=== PATIENT | male | born 1950 | race Asian ===

== ENCOUNTER 2021-03-04 19:26 | Emergency (ER) | payer MEDICARE, OTHER ==
[~2021-03-04] VITALS: Ht 172.7 cm; Wt 84.5 kg
[2021-03-04 19:31] VITALS: BP 157/83
== END 2021-03-04 20:50 | disposition home or self-care (01) ==
LOC: EMS 19:26
DX: H61.23 Impacted cerumen, bilateral (principal); E11.9 Type 2 diabetes mellitus without complications
CPT/HCPCS: 99283

== ENCOUNTER 2021-03-13 21:06 | Emergency (ER) | payer MEDICARE, OTHER ==
[~2021-03-13] VITALS: Ht 172.7 cm; Wt 84.1 kg
[2021-03-13] MEDS ORDERED: HYDROGEN PEROXIDE 118 ML SOLUTION TP ONE (23:00)
[2021-03-14 00:24] VITALS: BP 127/64
== END 2021-03-14 00:25 | disposition home or self-care (01) ==
LOC: EMS 21:11
DX: H61.23 Impacted cerumen, bilateral (principal); E11.9 Type 2 diabetes mellitus without complications
CPT/HCPCS: 69209; 99282; Z7502; Z7610

== ENCOUNTER 2021-09-16 12:46 | Emergency (ER) | payer MEDICARE, OTHER ==
[~2021-09-16] VITALS: Ht 175.3 cm; Wt 84.1 kg
[2021-09-16 14:38] LABS: BASOPHILS % (AUTO) 0.7 % (0.0-2.0); EOSINOPHILS % (AUTO) 1.4 % (1.0-6.0); HEMATOCRIT 42.8 % (41-53); HEMOGLOBIN 14.4 g/dL (13.5-17.5); LYMPHOCYTES # (AUTO) 0.9 K/uL (1.0-4.8); LYMPHOCYTES % (AUTO) 9.4 % (22.0-44.0); MEAN CORPUSCULAR HEMOGLOBIN 30.8 pg (26.0-34.0); MEAN CORPUSCULAR HGB CONC 33.7 G/dL (31.0-37.0); MEAN CORPUSCULAR VOLUME 91 fL (80-100); MONOCYTES # (AUTO) 0.8 K/uL (0.1-1.0); MONOCYTES % (AUTO) 7.7 % (2.0-9.0); NEUTROPHILS % (AUTO) 80.8 % (40.0-70.0); PLATELET COUNT (AUTO) 190 K/uL (150-450); RED BLOOD CELL COUNT(AUTO) 4.68 MIL/uL (4.50-5.90); RED CELL DISTRIBUTION WIDTH 12.9 % (11.5-14.5)
[2021-09-16 14:47] LABS: CALCIUM, TOTAL 9.1 mg/dL (8.8-10.5); CREATININE 2.18 mg/dL (0.60-1.30); POTASSIUM 4.3 mmol/L (3.5-5.1)
[2021-09-16 14:53] LABS: ALBUMIN 3.8 g/dL (3.4-5.0); BILIRUBIN,TOTAL 0.4 mg/dL (0.1-1.0); TOTAL PROTEIN, SERUM 7.7 g/dL (6.4-8.2)
[2021-09-16] MEDS ORDERED: KETOROLAC TROMETHAMINE 30 MG/ML VIAL IVP ONE (16:45)
[2021-09-16 18:15] VITALS: BP 165/75
== END 2021-09-16 19:04 | disposition home or self-care (01) ==
LOC: EDUNIT# 12:46 → EMS 12:54
DX: R07.89 Other chest pain (principal); I10 Essential (primary) hypertension; E11.9 Type 2 diabetes mellitus without complications; V49.49XA Driver injured in collision with other motor vehicles in traffic accident, initial encounter; Y93.89 Activity, other specified; Y92.89 Other specified places as the place of occurrence of the external cause; Y99.8 Other external cause status
CPT/HCPCS: 36415; 71045; 73502; 73552; 73562; 80053; 84484; 85025; 93005; 96374; 99285; J1885

== ENCOUNTER 2022-03-22 00:04 | Emergency (ER) | payer MEDICARE, OTHER ==
[~2022-03-22] VITALS: Ht 175.3 cm; Wt 84.0 kg
[~2022-03-22 00:04] MED LIST: ATEN-73 PO; ATOR20TA65 PO; CHLO25TA3 PO; FINA5TAB41 PO; FLUT1BLS10 IH; LORA10TA7 PO; LOSA-382 PO; METF-1211 PO; SITA100 PO; TAMS-13 PO
[2022-03-22 00:32] VITALS: BP 149/75
[2022-03-22 00:46] LABS: GLUCOSE,POINT OF CARE 99 MG/DL (70-110)
== END 2022-03-22 00:42 | disposition left against medical advice (07) ==
LOC: EMS 00:05
DX: Z53.21 Procedure and treatment not carried out due to patient leaving prior to being seen by health care provider (principal)
CPT/HCPCS: 82962

== ENCOUNTER 2022-08-22 17:22 | Emergency (ER) | payer MEDICARE, OTHER ==
[~2022-08-22] VITALS: Ht 175.3 cm; Wt 86.4 kg
[2022-08-22] MEDS ORDERED: SITA50 PO (17:28)
[2022-08-22] MEDS ORDERED: ASPI81TA87 PO (17:28)
[2022-08-22] MEDS ORDERED: ATOR10TA69 PO (17:28)
[2022-08-22 17:41] LABS: GLUCOMETER DEV NAME(LOC) ERT.5; GLUCOSE,POINT OF CARE 103 MG/DL (70-110)
[2022-08-22 20:09] VITALS: BP 143/75
== END 2022-08-22 20:52 | disposition home or self-care (01) ==
LOC: EMS 17:22
DX: I10 Essential (primary) hypertension (principal); E11.9 Type 2 diabetes mellitus without complications
CPT/HCPCS: 82962; 93005; 99283

== ENCOUNTER 2023-02-11 01:01 | Inpatient (IN) | payer MEDICARE, OTHER ==
[~2023-02-11] VITALS: Ht 172.7 cm; Wt 84.0 kg
[~2023-02-11 01:01] MED LIST changes: +ASPI81TA87 PO; -ATEN-73 PO; +ATOR10TA69 PO; -ATOR20TA65 PO; -SITA100 PO; +SITA50 PO
[2023-02-11 01:25] LABS: BASOPHILS % (AUTO) 1.1 % (0.0-2.0); EOSINOPHILS % (AUTO) 6.6 % (1.0-6.0); HEMATOCRIT 44.1 % (41-53); HEMOGLOBIN 14.8 g/dL (13.5-17.5); LYMPHOCYTES # (AUTO) 2.4 K/uL (1.0-4.8); LYMPHOCYTES % (AUTO) 26.3 % (22.0-44.0); MEAN CORPUSCULAR HEMOGLOBIN 31.2 pg (26.0-34.0); MEAN CORPUSCULAR HGB CONC 33.6 G/dL (31.0-37.0); MEAN CORPUSCULAR VOLUME 93 fL (80-100); MONOCYTES # (AUTO) 0.9 K/uL (0.1-1.0); MONOCYTES % (AUTO) 10.2 % (2.0-9.0); NEUTROPHILS % (AUTO) 55.8 % (40.0-70.0); PLATELET COUNT (AUTO) 231 K/uL (150-450); RED BLOOD CELL COUNT(AUTO) 4.74 MIL/uL (4.50-5.90)
[2023-02-11] MEDS ORDERED: DILTIAZEM HCL 5 MG/ML 5 ML VIAL IVP ONE (01:30)
[2023-02-11] MEDS ORDERED: DILTIAZEM HCL 125 MG in DEXTROSE 5%-WATER 100 ML IV PRN (01:30)
[2023-02-11 01:35] LABS: ANION GAP 12 mmol/L (8-16); CALCIUM, TOTAL 9.5 mg/dL (8.8-10.5); CARBON DIOXIDE 25 mmol/L (22-29); CHLORIDE 101 mmol/L (98-107); CREATININE 1.62 mg/dL (0.60-1.30); GLOMERULAR FILTR. RATE CALC 42 mL/min (>60); GLUCOSE,RANDOM 135 mg/dL (70-110); POTASSIUM 4.4 mmol/L (3.5-5.1); SODIUM SERUM 138 mmol/L (136-145)
[2023-02-11 01:37] LABS: APPEARANCE,URINE CLEAR (CLEAR); BILIRUBIN,URINE NEGATIVE (NEGATIVE); GLUCOSE, URINE (UA) NEGATIVE (NEGATIVE); KETONES,URINE NEGATIVE (NEGATIVE); LEUKOCYTE ESTERASE ,URINE NEGATIVE (NEGATIVE); NITRATE,URINE NEGATIVE (NEGATIVE); OCCULT BLOOD,URINE NEGATIVE (NEGATIVE); PH,URINE 6.5 (5.0-8.0); PROTEIN,URINE NEGATIVE (NEGATIVE); SPECIFIC GRAVITIY, URINE 1.011 (1.003-1.030); UROBILINOGEN,URINE <=1.0 mg/dL (<=1.0)
[2023-02-11 01:38] LABS: PROTHROMBIN TIME 10.4 SEC (9.4-11.6)
[2023-02-11 01:43] LABS: ALANINE AMINOTRANSFERASE 31 U/L (12-78); ALBUMIN 3.9 g/dL (3.4-5.0); ALKALINE PHOSPHATASE 79 U/L (46-116); ASPARTATE AMINOTRANSFERASE 25 U/L (15-37); BILIRUBIN,TOTAL 0.5 mg/dL (0.1-1.0); CREATINE KINASE, TOTAL ONLY 170 U/L (39-308); TOTAL PROTEIN, SERUM 8.4 g/dL (6.4-8.2)
[2023-02-11 01:46] LABS: B-TYPE NATRIURETIC PEPTIDE < 5 pg/mL (0-100)
[2023-02-11 11:31] VITALS: BP 140/72; PULSE 65; RESP 19; TEMP 97.9
[2023-02-11 15:51] VITALS: BP 144/73; PULSE 59; RESP 18; TEMP 98.4
[2023-02-11] MEDS ORDERED: IPRATROPIUM BROMIDE 0.5 MG/2.5 ML NEB SOLUTION NEB PRN (18:15)
[2023-02-11] MEDS ORDERED: ALBUTEROL SULFATE 2.5 MG/0.5 ML NEB SOLUTION NEB PRN (18:15)
[2023-02-11] MEDS ORDERED: ACETAMINOPHEN 325 MG TABLET PO PRN (18:15)
[2023-02-11] MEDS ORDERED: HYDROCODONE/ACETAMINOPHEN 5-325 MG TABLET PO PRN (18:15)
[2023-02-11 21:16] VITALS: BP 143/88; PULSE 60; RESP 18; TEMP 98
[2023-02-11] MEDS: HEPARIN SODIUM,PORCINE 5,000 UNITS/ML VIAL SQ SCH (22:07)
[2023-02-11] MEDS: TAMSULOSIN HCL 0.4 MG CAPSULE PO SCH (22:07)
[2023-02-12 00:01] LABS: APPEARANCE,URINE CLEAR (CLEAR); BILIRUBIN,URINE NEGATIVE (NEGATIVE); GLUCOSE, URINE (UA) NEGATIVE (NEGATIVE); KETONES,URINE NEGATIVE (NEGATIVE); LEUKOCYTE ESTERASE ,URINE NEGATIVE (NEGATIVE); NITRATE,URINE NEGATIVE (NEGATIVE); OCCULT BLOOD,URINE NEGATIVE (NEGATIVE); PH,URINE 7.5 (5.0-8.0); PROTEIN,URINE NEGATIVE (NEGATIVE); SPECIFIC GRAVITIY, URINE 1.011 (1.003-1.030); UROBILINOGEN,URINE <=1.0 mg/dL (<=1.0)
[2023-02-12 00:31] VITALS: BP 140/75; PULSE 62; RESP 18; TEMP 97.9
[2023-02-12 05:07] VITALS: BP 158/78; PULSE 64; RESP 17; TEMP 98
[2023-02-12 07:30] VITALS: BP 146/78; PULSE 63; RESP 18; TEMP 97.8
[2023-02-12 07:43] LABS: BASOPHILS % (AUTO) 0.7 % (0.0-2.0); EOSINOPHILS % (AUTO) 5.4 % (1.0-6.0); HEMOGLOBIN 14.8 g/dL (13.5-17.5); LYMPHOCYTES # (AUTO) 1.5 K/uL (1.0-4.8); LYMPHOCYTES % (AUTO) 19.9 % (22.0-44.0); MEAN CORPUSCULAR HEMOGLOBIN 31.8 pg (26.0-34.0); MEAN CORPUSCULAR HGB CONC 34.3 G/dL (31.0-37.0); MEAN CORPUSCULAR VOLUME 93 fL (80-100); MONOCYTES # (AUTO) 0.7 K/uL (0.1-1.0); MONOCYTES % (AUTO) 9.3 % (2.0-9.0); NEUTROPHILS # (AUTO) 4.9 K/uL (1.8-7.7); NEUTROPHILS % (AUTO) 64.7 % (40.0-70.0); PLATELET COUNT (AUTO) 251 K/uL (150-450); RED BLOOD CELL COUNT(AUTO) 4.63 MIL/uL (4.50-5.90); RED CELL DISTRIBUTION WIDTH 12.3 % (11.5-14.5)
[2023-02-12 08:02] LABS: ALBUMIN 3.5 g/dL (3.4-5.0); BILIRUBIN,TOTAL 0.5 mg/dL (0.1-1.0); CALCIUM, TOTAL 9.2 mg/dL (8.8-10.5); CREATININE 1.39 mg/dL (0.60-1.30); MAGNESIUM 1.9 mg/dL (1.80-2.40); PHOSPHORUS 3.4 mg/dL (2.5-4.9); POTASSIUM 3.8 mmol/L (3.5-5.1); TOTAL PROTEIN, SERUM 7.8 g/dL (6.4-8.2)
[2023-02-12 08:06] LABS: HEMOGLOBIN A1C 6.1 % (3.8-5.6)
[2023-02-12] MEDS ORDERED: CHLORTHALIDONE 25 MG TABLET PO SCH (09:00)
[2023-02-12] MEDS ORDERED: LOSARTAN POTASSIUM 50 MG TABLET PO SCH (09:00)
[2023-02-12] MEDS ORDERED: FINASTERIDE 5 MG TABLET PO SCH (09:00)
[2023-02-12] MEDS ORDERED: LORATADINE 10 MG TABLET PO SCH (09:00)
[2023-02-12] MEDS ORDERED: CARVEDILOL 3.125 MG TABLET PO SCH (09:00)
[2023-02-12] MEDS ORDERED: ASPIRIN 81 MG DR TABLET PO SCH (09:00)
[2023-02-12] MEDS ORDERED: ATORVASTATIN CALCIUM 10 MG TABLET PO SCH (09:00)
[2023-02-12] MEDS: TAMSULOSIN HCL 0.4 MG CAPSULE PO SCH (10:25)
[2023-02-12] MEDS: HEPARIN SODIUM,PORCINE 5,000 UNITS/ML VIAL SQ SCH (10:26)
[2023-02-12 11:24] VITALS: BP 164/80; PULSE 60; RESP 18; TEMP 98.4
[2023-02-12 15:21] VITALS: BP 130/71; PULSE 70; RESP 18; TEMP 98
[2023-02-12] MEDS ORDERED: TAMS-13 PO (17:24)
[2023-02-12] MEDS ORDERED: CARV3.1231 PO (17:24)
[2023-02-12] MEDS ORDERED: APIX5TAB PO (17:26)
[2023-02-12] MEDS ORDERED: APIXABAN 5 MG TABLET PO SCH (21:00)
== END 2023-02-12 18:35 | disposition home or self-care (01) | DRG 308 ==
LOC: EMS 01:01 → ICUN 04:00 → 5S 10:05
PROVIDERS: ADMIT Internal Medicine; ATTEND Internal Medicine
DX: I48.20 Chronic atrial fibrillation, unspecified (principal); J18.9 Pneumonia, unspecified organism; N17.9 Acute kidney failure, unspecified; E11.65 Type 2 diabetes mellitus with hyperglycemia; I49.9 Cardiac arrhythmia, unspecified; K21.9 Gastro-esophageal reflux disease without esophagitis; N40.0 Benign prostatic hyperplasia without lower urinary tract symptoms; M19.90 Unspecified osteoarthritis, unspecified site; E78.5 Hyperlipidemia, unspecified; E11.22 Type 2 diabetes mellitus with diabetic chronic kidney disease; I12.9 Hypertensive chronic kidney disease with stage 1 through stage 4 chronic kidney disease, or unspecified chronic kidney disease; N18.9 Chronic kidney disease, unspecified; Z79.899 Other long term (current) drug therapy; Z79.82 Long term (current) use of aspirin
CPT/HCPCS: 71045; 80053; 81003; 82550; 83036; 83735; 83880; 84100; 84484; 85025; 85610; 85730; 93005; 93306; 99291; J1644; J3490; J7060; 36415-L1; 36415-TC

== ENCOUNTER 2023-05-09 20:36 | Emergency (ER) | payer MEDICARE, OTHER ==
[~2023-05-09] VITALS: Ht 172.7 cm; Wt 72.0 kg
[~2023-05-09 20:36] MED LIST changes: +APIX5TAB PO; +METO25 PO; -TAMS-13 PO; +TAMS0.4C94 PO
[2023-05-09 22:13] LABS: BASOPHILS % (AUTO) 0.8 % (0.0-2.0); EOSINOPHILS % (AUTO) 4.2 % (1.0-6.0); HEMATOCRIT 36.8 % (41-53); HEMOGLOBIN 12.5 g/dL (13.5-17.5); LYMPHOCYTES # (AUTO) 1.3 K/uL (1.0-4.8); LYMPHOCYTES % (AUTO) 17.8 % (22.0-44.0); MEAN CORPUSCULAR HEMOGLOBIN 31.3 pg (26.0-34.0); MEAN CORPUSCULAR VOLUME 92 fL (80-100); MONOCYTES # (AUTO) 0.8 K/uL (0.1-1.0); MONOCYTES % (AUTO) 11.5 % (2.0-9.0); NEUTROPHILS # (AUTO) 4.8 K/uL (1.8-7.7); NEUTROPHILS % (AUTO) 65.7 % (40.0-70.0); PLATELET COUNT (AUTO) 201 K/uL (150-450); RED CELL DISTRIBUTION WIDTH 13.5 % (11.5-14.5); WHITE BLOOD COUNT (AUTO) 7.2 K/uL (4.5-11.0)
[2023-05-09 22:18] VITALS: TEMP 98.1
[2023-05-09 22:26] LABS: CALCIUM, TOTAL 8.9 mg/dL (8.8-10.5); CREATININE 1.61 mg/dL (0.60-1.30); POTASSIUM 3.4 mmol/L (3.5-5.1)
[2023-05-09 22:32] LABS: ALBUMIN 3.4 g/dL (3.4-5.0); BILIRUBIN,TOTAL 0.3 mg/dL (0.1-1.0); TOTAL PROTEIN, SERUM 7.3 g/dL (6.4-8.2)
[2023-05-09 22:34] LABS: TROPONIN I-HIGH SENSITIVITY 9 ng/L (<76)
[2023-05-09 22:38] LABS: PROTHROMBIN TIME 10.9 SEC (9.4-11.6)
[2023-05-09 23:08] LABS: APPEARANCE,URINE CLEAR (CLEAR); BILIRUBIN,URINE NEGATIVE (NEGATIVE); COLOR,URINE COLORLESS (YELLOW); GLUCOSE, URINE (UA) NEGATIVE (NEGATIVE); KETONES,URINE NEGATIVE (NEGATIVE); LEUKOCYTE ESTERASE ,URINE NEGATIVE (NEGATIVE); NITRATE,URINE NEGATIVE (NEGATIVE); OCCULT BLOOD,URINE NEGATIVE (NEGATIVE); PROTEIN,URINE NEGATIVE (NEGATIVE); SPECIFIC GRAVITIY, URINE 1.009 (1.003-1.030); UROBILINOGEN,URINE <=1.0 mg/dL (<=1.0)
[2023-05-09 23:56] VITALS: BP 98/54; PULSE 55; RESP 16
== END 2023-05-10 00:11 | disposition home or self-care (01) ==
LOC: EMS 20:37
DX: E11.22 Type 2 diabetes mellitus with diabetic chronic kidney disease (principal); I12.9 Hypertensive chronic kidney disease with stage 1 through stage 4 chronic kidney disease, or unspecified chronic kidney disease; N18.9 Chronic kidney disease, unspecified; M19.90 Unspecified osteoarthritis, unspecified site; E78.00 Pure hypercholesterolemia, unspecified; N40.0 Benign prostatic hyperplasia without lower urinary tract symptoms
CPT/HCPCS: 71045; 80053; 81003; 83880; 84484; 85025; 85610; 85730; 93005; 99285; 36415-L1; 36415-TC